=== PATIENT | female | born 1995 | race American Indian/Alaskan Native ===

== ENCOUNTER 2021-04-16 13:51 | Emergency (ER) | payer BC ==
--- NOTE | 2021-04-16 14:20 | Emergency Department Report ---
ED General Adult HPI - General Chief complaint: Nausea/Vomiting/Diarrhea Stated complaint: VOMITTING BLOOD Time Seen by Provider: 04/16/21 13:58 Source: patient Mode of arrival: Ambulatory Limitations: No Limitations - History of Present Illness Initial comments: 25-year-old -[place] female presents to the emergency room complaining of concern for vomiting blood. Patient reports that she had some chicken last night she had something to drink water she did vomit the water the chicken and then she was straining and had some blood-tinged mucus in her vomitus. Patient denies any chest pain she reports her throat is a little sore from when she was vomiting. She does also reports she has been having some pain with urination. Her last menstrual period was March 29, 2021. She is 1 para 0 with 1 miscarriage. Denies any abdominal pain no vaginal discharge states that her urine has odor. She states that this been going on for about a week. Denies any fever chills no chest pain shortness of breath. Onset/Timin -: week(s) Severity scale (0 -10): 3 Quality: burning Consistency: intermittent Improves with: none Worsens with: none Associated Symptoms: nausea/vomiting (Resolved since last night). denies: fever/chills, headaches, loss of appetite, shortness of breath, weakness Treatments Prior to Arrival: none - Related Data Previous Rx's Medication Instructions Recorded Last Taken Type Nitrofurantoin [place]/M-Cryst 100 mg PO Q12HR 7 Days #14 capsule 04/16/21 Unknown Rx [Macrobid CAP] Allergies Allergy/AdvReac Type Severity Reaction Status Date / Time No Known Allergies Allergy Unverified 04/16/21 14:15 ED Review of Systems ROS: Stated complaint: VOMITTING BLOOD Other details as noted in HPI Comment: All other systems reviewed and negative ED Past Medical Hx - Past Medical History Previous Medical History?: No - Surgical History Past Surgical History?: No - Medications Home Medications: Home Medications Medication Instructions Recorded Confirmed Last Taken Type Nitrofurantoin [place]/M-Cryst 100 mg PO Q12HR 7 Days #14 capsule 04/16/21 Unknown Rx [Macrobid CAP] ED Physical Exam - General Limitations: No Limitations General appearance: alert, in no apparent distress - Head Head exam: Present: atraumatic, normocephalic - Eye Eye exam: Present: normal appearance - ENT ENT exam: Present: mucous membranes moist - Neck Neck exam: Present: normal inspection - Respiratory Respiratory exam: Present: normal lung sounds bilaterally. Absent: respiratory distress - Cardiovascular Cardiovascular Exam: Present: regular rate, normal rhythm. Absent: systolic murmur, diastolic murmur, rubs, gallop - GI/Abdominal GI/Abdominal exam: Present: soft, normal bowel sounds - Extremities Exam Extremities exam: Present: normal inspection - Back Exam Back exam: Present: normal inspection - Neurological Exam Neurological exam: Present: alert, oriented X3 - Psychiatric Psychiatric exam: Present: normal affect, normal mood - Skin Skin exam: Present: warm, dry, intact, normal color. Absent: rash ED Course Vital Signs 04/16/21 04/16/21 04/16/21 13:56 15:00 15:02 Temperature 98.8 F Pulse Rate 84 78 Respiratory 18 12 12 Rate Blood Pressure 140/69 Blood Pressure 107/66 [Right] O2 Sat by Pulse 100 100 100 Oximetry ED Medical Decision Making - Medical Decision Making 25-year-old -[place] female presents to the emergency room complaining of concern for vomiting blood. Patient reports that she had some chicken last night she had something to drink water she did vomit the water the chicken and then she was straining and had some blood-tinged mucus in her vomitus. Patient denies any chest pain she reports her throat is a little sore from when she was vomiting. She does also reports she has been having some pain with urination. Her last menstrual period was March 29, 2021. She is 1 para 0 with 1 miscarriage. Denies any abdominal pain no vaginal discharge states that her urine has odor. She states that this been going on for about a week. Denies any fever chills no chest pain shortness of breath. Urinalysis urine test has been ordered and sent. Critical care attestation.: If time is entered above; I have spent that time in minutes in the direct care of this critically ill patient, excluding procedure time. ED Disposition Clinical Impression: UTI (urinary tract infection) Disposition: HOME / SELF CARE / HOMELESS Is pt being admited?: No Does the pt Need Aspirin: No Condition: Stable Instructions: Urinary Tract Infection, Adult, [id number] Additional Instructions: Complete antibiotics as prescribed. Increase your fluid intake advance her diet as tolerated follow-up with [facility]. Urinalysis is positive for urinary tract infection negative test. Prescriptions: Nitrofurantoin [place]/M-Cryst [Macrobid CAP] 100 mg PO Q12HR 7 Days #14 capsule Referrals: [facility] [Provider Group] - 3-5 Days Forms: Work/School Release Form(ED) Time of Disposition: 15:14
[2021-04-16 14:54] LABS: Bacteria,Urine 1+ /HPF (Negative); Mucus,Urine FEW /HPF
[2021-04-16 15:01] LABS: Bilirubin,Urine Negative (Negative); Color,Urine Yellow (Yellow)
[2021-04-16 15:02] LABS: Blood,Urine Small (Negative); HCG Qualitative,Urine Negative (Negative); Protein,Urine <15 mg/dL mg/dL (Negative)
[2021-04-16 15:03] VITALS: BP 107/66
== END 2021-04-16 15:46 | disposition home or self-care (01) ==
LOC: ED 13:51
DX: N39.0 Urinary tract infection, site not specified (principal); K92.0 Hematemesis
CPT/HCPCS: 81001; 81025; 99283

== ENCOUNTER 2021-05-13 10:23 | Emergency (ER) | payer BC ==
[2021-05-13 10:27] VITALS: BP 138/89
[2021-05-13] MEDS ORDERED: IBUPROFEN 600 MG TAB PO ONE (10:56)
[2021-05-13] MEDS ORDERED: ACETAMINOPHEN 325 MG TAB PO ONE (10:56)
--- NOTE | 2021-05-13 10:56 | Emergency Department Report ---
- General Chief Complaint: Pain General Stated Complaint: FLU LIKS SYMPTOMS Time Seen by Provider: 05/13/21 10:33 Source: patient Mode of arrival: Ambulatory Limitations: No Limitations - History of Present Illness Initial Comments: 25-year-old female who denies any significant past medical history presents to the ER today with complaints of flulike symptoms. She states that symptoms started yesterday. She reports cough, sore throat, generalized body aches, generalized fatigue, nasal congestion and no appetite. She denies any sneezing, loss of taste or smell, cough, wheezing, shortness of breath, GI or symptoms. She states that her sister was recently sick with a cold. She states that her sister did not get tested for the flu not Covid. She states that she has not gotten the COVID-19 vaccine. She does smoke marijuana and drinks socially. MD Complaint: sore throat, other (Headache, generalized fatigue, nasal congestion, body aches) -: days(s) (1) - Related Data Previous Rx's Medication Instructions Recorded Last Taken Type Nitrofurantoin [place]/M-Cryst 100 mg PO Q12HR 7 Days #14 capsule 04/16/21 Unknown Rx [Macrobid CAP] Allergies Allergy/AdvReac Type Severity Reaction Status Date / Time No Known Allergies Allergy Unverified 04/16/21 14:15 ED Review of Systems ROS: Stated complaint: FLU LIKS SYMPTOMS Other details as noted in HPI Comment: All other systems reviewed and negative Constitutional: denies: chills, diaphoresis, fever, malaise, weakness Eyes: denies: eye pain, eye discharge, vision change ENT: throat pain, congestion Respiratory: denies: cough, orthopnea, shortness of breath, SOB with exertion, SOB at rest, wheezing Cardiovascular: denies: chest pain, palpitations Gastrointestinal: denies: abdominal pain, nausea, diarrhea, constipation, hematemesis, melena, hematochezia Genitourinary: as per HPI. denies: urgency, dysuria, frequency, hematuria, discharge, abnormal menses, dyspareunia Musculoskeletal: denies: back pain, joint swelling, arthralgia Skin: denies: rash, lesions, change in color, pruritus Neurological: denies: headache, weakness, numbness, paresthesias, confusion, abnormal gait, vertigo ED Past Medical Hx - Medications Home Medications: Home Medications Medication Instructions Recorded Confirmed Last Taken Type Nitrofurantoin [place]/M-Cryst 100 mg PO Q12HR 7 Days #14 capsule 04/16/21 Unknown Rx [Macrobid CAP] ED Physical Exam - General Limitations: No Limitations General appearance: alert, in no apparent distress - Head Head exam: Present: atraumatic, normocephalic, normal inspection - Eye Eye exam: Present: normal appearance, PERRL, EOMI Pupils: Present: normal accommodation - ENT ENT exam: Present: normal exam - Expanded ENT Exam Expanded TM/Canal exam: Effusion: Right TM, Left TM Mouth exam: Present: normal external inspection Teeth exam: Present: normal inspection Throat exam: Positive: tonsillar erythema. Negative: tonsillomegaly, tonsillar exudate, R peritonsillar mass, L peritonsillar mass - Neck Neck exam: Present: normal inspection, full ROM. Absent: lymphadenopathy - Respiratory Respiratory exam: Present: normal lung sounds bilaterally. Absent: respiratory distress, wheezes, rales, rhonchi - Cardiovascular Cardiovascular Exam: Present: regular rate, normal rhythm, normal heart sounds - GI/Abdominal GI/Abdominal exam: Present: soft. Absent: distended, guarding, rebound - Neurological Exam Neurological exam: Present: alert, oriented X3, CN II-XII intact, normal gait - Psychiatric Psychiatric exam: Present: normal affect, normal mood - Skin Skin exam: Present: intact ED Course Vital Signs 05/13/21 05/13/21 05/13/21 10:26 11:29 11:30 Temperature 98.9 F Pulse Rate 95 H Respiratory 18 16 16 Rate Blood Pressure 138/89 O2 Sat by Pulse 99 Oximetry ED Medical Decision Making - Medical Decision Making Rapid flu and strep negative. The patient is resting comfortably, is alert and in no distress. The patient has normal mental status and is neurologically intact. The patient appears well and is able to tolerate p.o. fluids and solids by mouth and there is no significant dehydration. There is no respiratory distress and no signs of systemic toxicity. The history, exam, diagnostic testing and current condition do not demonstrate an infectious process such as m eningitis, severe pneumonia, retropharyngeal abscess, epiglottitis, ARDS, sepsis or other serious bacterial infection requiring further testing, treatment, consultation or admission at this time. Suspect viral illness. The vital signs have been stable. Discussed results and suspecte dx with patient. I recommended that she gets an outpatient COVID test. Recommend symptomatic tx at this time. The patient's condition is stable and appropriate for discharge. The patient will pursue further outpatient evaluation with the primary care physician or other designated or consulting physician as indicated on the discharge instructions. Critical care attestation.: If time is entered above; I have spent that time in minutes in the direct care of this critically ill patient, excluding procedure time. ED Disposition Clinical Impression: Viral illness Disposition: HOME / SELF CARE / HOMELESS Is pt being admited?: No Does the pt Need Aspirin: No Condition: Stable Instructions: Viral Illness, Adult Additional Instructions: I recommend that you get the COVID 19 test at any local pharmacy or urgent care. Quarantine at home until you get your results. Drink lots of fluids, take tylenol or motrin for pain and or fever. You can take over the counter cough/cold/flu medications for symptomatic treatment. Take a multivitamin. Follow up with PCP. Return to ED if worse. Referrals: PRIMARY MD MOHSEN [Primary Care Provider] - 3-5 Days YULIET GRIFFITH MD [Staff Physician] - 3-5 Days Forms: Work/School Release Form(ED) Time of Disposition: 11:44
== END 2021-05-13 11:55 | disposition home or self-care (01) ==
LOC: ED 10:23
DX: B34.9 Viral infection, unspecified (principal); J02.9 Acute pharyngitis, unspecified
CPT/HCPCS: 87116; 87400; 87430; 99283